=== PATIENT | male | born 1940 | race African-American/Black ===

== ENCOUNTER 2018-05-11 13:18 | Emergency (ER) | payer OTHER ==
[~2018-05-11] VITALS: Ht 180.3 cm; Wt 61.7 kg
[2018-05-11 13:26] VITALS: Ht 180.3 cm; Wt 61.7 kg
[2018-05-11 15:08] LABS: BASOPHIL % 1.3 % (0-2); PLATELET COUNT 159 x10^3mcL (130-400)
[2018-05-11 15:13] LABS: CALCIUM 8.7 mg/dL (8.5-10.1); CARBON DIOXIDE 29.5 mmol/L (21-32); CHLORIDE SERUM 108 mmol/L (98-107); GLUCOSE SERUM 88 mg/dL (74-106); POTASSIUM SERUM 4.3 mmol/L (3.5-5.1); SODIUM SERUM 143 mmol/L (136-145)
[2018-05-11 15:17] LABS: ALBUMIN 3.7 g/dL (3.4-5.0); ALKALINE PHOSPHATASE 69 U/L (46-116); ALT/SGPT 22 U/L (16-63); AST/SGOT 20 U/L (15-37); BILIRUBIN TOTAL 0.4 mg/dL (0.20-1.00); LIPASE 277 IU/L (73-393)
[2018-05-11 16:29] VITALS: BP 121/61
== END 2018-05-11 16:29 | disposition home or self-care (01) ==
LOC: ED 13:18
PROVIDERS: Emergency Medicine
DX: R10.31 Right lower quadrant pain (principal); Z88.0 Allergy status to penicillin
CPT/HCPCS: J1885; J7030